=== PATIENT | female | born 1950 | race Caucasian/White ===

== ENCOUNTER 2018-01-11 02:55 | Outpatient (CLI) | payer MEDICARE, MEDICAID, SELFPAY ==
[2018-01-11 10:14] LABS: ALT 287 U/L (12-78); AST 186 U/L (15-37); Albumin 4.1 g/dL (3.4-5.0); Alkaline Phosphatase 95 U/L (46-116); T4 8.7 ug/dL (4.5-12.5); TSH 1.72 uIU/mL (0.358-3.74); Total Protein 7.9 g/dL (6.4-8.2)
[2018-01-11 10:15] LABS: Folate > 20.0 ng/mL (8.6-20.0); Vitamin B12 > 1000 pg/mL (193-986)
[2018-01-11 11:19] LABS: Bilirubin, Direct 0.15 mg/dL (0.00-0.20); Bilirubin, Total 0.3 mg/dL (0.2-1.0); C-Reactive Protein 0.07 mg/dL (0.0-0.3)
[2018-01-11 21:35] LABS: T3,Free 2.1 pg/ml (2.8-5.3)
[2018-01-12 15:39] LABS: Apolipoprotein A1 154 mg/dL (>=140); Lipoprotein (a) 25 mg/dL (<=30)
[2018-01-13 07:11] LABS: Vitamin D 25 Total 117.7 ng/ml (30-100)
== END 2018-01-11 02:56 ==
PROVIDERS: PCP Naturopath; Visit Provider Naturopath
DX: R06.00 Dyspnea, unspecified (principal); E55.9 Vitamin D deficiency, unspecified; I25.10 Atherosclerotic heart disease of native coronary artery without angina pectoris; D53.9 Nutritional anemia, unspecified; E03.9 Hypothyroidism, unspecified; R53.83 Other fatigue; B18.2 Chronic viral hepatitis C; R00.2 Palpitations; R94.31 Abnormal electrocardiogram [ECG] [EKG]; R07.9 Chest pain, unspecified
CPT/HCPCS: 36415; 80076; 82306; 83695; 82172; 82607; 82746; 84436; 84443; 84481; 86140; 87522

== ENCOUNTER 2018-01-21 03:22 | Outpatient (CLI) | payer MEDICARE, MEDICAID, SELFPAY ==
[2018-01-21 08:34] LABS: ALT 285 U/L (12-78); AST 165 U/L (15-37); Albumin 3.8 g/dL (3.4-5.0); Alkaline Phosphatase 91 U/L (46-116); Anion Gap 5.2 mmol/L (3-11); BUN 10 mg/dL (7-18); Bilirubin, Total 0.4 mg/dL (0.2-1.0); CO2 27.8 mmol/L (21.0-32.0); Calcium 9.3 mg/dL (8.5-10.1); Chloride 104 mmol/L (98-107); Glucose 90 mg/dL (70-100); PHOSPHORUS 3.7 mg/dL (2.6-4.7); Potassium 4.9 mmol/L (3.5-5.1); Sodium 137 mmol/L (136-145); Total Protein 7.2 g/dL (6.4-8.2)
[2018-01-24 11:48] LABS: Parathyroid Hormone,Intact 59 pg/ml (19-88)
== END 2018-01-21 03:23 ==
PROVIDERS: PCP Naturopath; Visit Provider Naturopath
DX: E67.3 Hypervitaminosis D (principal); N20.0 Calculus of kidney; M62.40 Contracture of muscle, unspecified site
CPT/HCPCS: 36415; 80053; 83970; 84100

== ENCOUNTER 2018-03-01 01:58 | Outpatient (CLI) | payer MEDICARE, MEDICAID, SELFPAY ==
[2018-03-01 08:33] LABS: FREE T4 0.86 ng/dL (0.76-1.46); TSH 1.27 uIU/mL (0.358-3.74)
[2018-03-01 21:31] LABS: T3,Free 2.5 pg/ml (2.8-5.3)
[2018-03-03 07:43] LABS: Vitamin D 25 Total 98.7 ng/ml (30-100)
== END 2018-03-01 02:18 ==
PROVIDERS: PCP Naturopath; Visit Provider Naturopath
DX: E55.9 Vitamin D deficiency, unspecified (principal); E03.9 Hypothyroidism, unspecified
CPT/HCPCS: 36415; 82306; 84439; 84443; 84481

== ENCOUNTER 2018-03-24 01:41 | Outpatient (CLI) | payer MEDICARE, MEDICAID, SELFPAY ==
[2018-03-24 10:22] LABS: FREE T4 0.79 ng/dL (0.76-1.46); TSH 1.48 uIU/mL (0.358-3.74)
[2018-03-24 21:43] LABS: T3,Free 2.2 pg/ml (2.8-5.3)
== END 2018-03-24 02:01 ==
PROVIDERS: PCP Naturopath; Visit Provider Naturopath
DX: E03.9 Hypothyroidism, unspecified (principal)
CPT/HCPCS: 36415; 84439; 84443; 84481

== ENCOUNTER 2018-04-26 00:08 | Outpatient (CLI) | payer MEDICARE, MEDICAID, SELFPAY ==
--- NOTE | 2018-04-26 13:30 | DI.RAD_ITS ---
SYMPTOMS/DIAGNOSIS: SCREENING FOR OSTEOPOROSIS, Z78.0 DEXA SCAN: Routine examination. The single lateral view of the spine shows no compression deformities. Evaluation of the left hip shows a total T score of -2.0 and a Z score of -0.6 This is consistent with osteopenia and an increased fracture risk. Evaluation of the lumbar spine shows a total T score of -0.6 and a Z score of 1.4, which is within normal limits. IMPRESSION: Osteopenia in the left hip. No evidence of osteoporosis.
== END 2018-04-26 00:28 ==
PROVIDERS: PCP Naturopath; Visit Provider Naturopath
DX: M85.88 Other specified disorders of bone density and structure, other site (principal); Z78.0 Asymptomatic menopausal state
CPT/HCPCS: 77080

== ENCOUNTER 2018-06-19 09:09 | Outpatient (CLI) | payer MEDICARE, MEDICAID, SELFPAY ==
[2018-06-19 11:26] LABS: FREE T4 0.89 ng/dL (0.76-1.46); TSH 1.13 uIU/mL (0.358-3.74)
[2018-06-20 17:14] LABS: T3,Free 2.9 pg/ml (2.8-5.3)
== END 2018-06-19 09:29 ==
PROVIDERS: PCP Naturopath; Visit Provider Naturopath
DX: E03.9 Hypothyroidism, unspecified (principal)
CPT/HCPCS: 36415; 84439; 84443; 84481

== ENCOUNTER 2019-01-05 00:35 | Outpatient (CLI) | payer MEDICARE, MEDICAID, SELFPAY ==
[2019-01-05 07:35] LABS: Absolute Basophil Count 0.06 k/cumm (0.0-0.2); Absolute Lymphocyte Count 2.02 k/cumm (1.2-3.4); Absolute Monocyte Count 0.67 k/cumm (0.11-0.7); Absolute Neutrophil Count 2.68 k/cumm (1.2-6.7); Basophils % 1.1; Eosinophils % 3.6; HCT 39.2 % (36.0-46.0); Lymphocytes % 35.9; Mean Corp. HGB Concentration 33.2 g/dL (32.0-36.0); Mean Corpuscular Hemoglobin 31.5 pg (27.0-33.0); Mean Corpuscular Volume 94.9 fL (80-95); Mean Platelet Volume 11.4 fL (8.0-11.0); Monocytes % 11.9; Neutrophils % 47.5; Platelet Count 203 x1000/uL (130-400); RBC 4.13 m/cumm (4.00-5.20); RBC Distribution Width 12.5 % (11.7-14.6); White Blood Cell Count 5.63 k/cumm (4.4-10.8)
[2019-01-05 07:43] LABS: Hemoglobin A1C 5.3 % (4.5-6.2)
[2019-01-05 08:49] LABS: Iron 73 ug/dL (50-175); Total Iron Binding Capacity 291 ug/dL (250-450); Transferrin Sat 25 % (15-50)
[2019-01-05 08:51] LABS: ALT 65 U/L (12-78); AST 49 U/L (15-37); Albumin 3.7 g/dL (3.4-5.0); Alkaline Phosphatase 84 U/L (46-116); Anion Gap 10.7 mmol/L (3-11); BUN 11 mg/dL (7-18); Bilirubin, Total 0.4 mg/dL (0.2-1.0); CO2 26.3 mmol/L (21.0-32.0); CREATININE 0.68 mg/dL (0.55-1.02); Calcium 9.3 mg/dL (8.5-10.1); Chloride 101 mmol/L (98-107); FREE T4 0.92 ng/dL (0.76-1.46); Glucose 98 mg/dL (70-100); Potassium 4.2 mmol/L (3.5-5.1); Sodium 138 mmol/L (136-145); Total Protein 7.6 g/dL (6.4-8.2)
[2019-01-05 09:12] LABS: Vitamin D 25 Total 83.3 ng/ml (30-100)
[2019-01-05 17:01] LABS: T3,Free 2.5 pg/ml (2.8-5.3)
[2019-01-06 13:29] LABS: Apolipoprotein A1 151 mg/dL (>=140)
== END 2019-01-05 00:55 ==
PROVIDERS: PCP Naturopath; Visit Provider Naturopath
DX: E03.9 Hypothyroidism, unspecified (principal); R53.83 Other fatigue; E55.9 Vitamin D deficiency, unspecified; D50.9 Iron deficiency anemia, unspecified; I25.10 Atherosclerotic heart disease of native coronary artery without angina pectoris; R00.2 Palpitations; B18.2 Chronic viral hepatitis C; R79.89 Other specified abnormal findings of blood chemistry
CPT/HCPCS: 36415; 80053; 82306; 82172; 83036; 83540; 83550; 84439; 84443; 84481; 85025; 87522

== ENCOUNTER → 2019-03-29 13:48 | Outpatient (BNVA) | payer MEDICARE, MEDICAID, SELFPAY | PROVIDERS: PCP Naturopath; Referring Provider Naturopath; Visit Provider Psychiatry & Neurology Neurology | DX: R68.84 Jaw pain (principal); G25.0 Essential tremor | CPT/HCPCS: 99215 ==

== ENCOUNTER 2019-06-24 00:26 | Outpatient (CLI) | payer MEDICARE, MEDICAID, SELFPAY ==
[2019-06-24 11:27] LABS: FREE T4 0.84 ng/dL (0.76-1.46); TSH 1.21 uIU/mL (0.36-3.74)
[2019-06-25 16:27] LABS: T3,Free 2.5 pg/mL (2.8-5.3)
== END 2019-06-24 00:46 ==
PROVIDERS: PCP Naturopath; Visit Provider Naturopath
DX: E03.9 Hypothyroidism, unspecified (principal)
CPT/HCPCS: 36415; 84439; 84443; 84481

== ENCOUNTER 2021-03-31 10:15 | Emergency (ER) | payer MEDICARE, MEDICAID, SELFPAY ==
[2021-03-31 10:32] VITALS: BP 149/73; PULSE 80; RESP 18; TEMP 36.9; O2SAT 98
--- NOTE | 2021-03-31 10:38 | W.ED.GENAD ---
Discharge Plan Disposition Patient Disposition: HOME Condition: Improving Discharge Details Clinical Impression: COVID-19 Primary Care Provider: Marley Almanzar ED Provider: Jonny Montiel Home Meds and New Rx's Prescriptions: New ondansetron HCl [Zofran] 4 mg tablet 4 mg PO QID PRN (Reason: nausea and vomiting) Qty: 10 RF: 0 Continued MP Thyroid PO RF: 0 lecithin 1,200 MG capsule 1,500 mg PO DAILY AM RF: 0 garlic 1 EACH capsule 1 ea PO BID RF: 0 Pure Taurine 500 MG capsule 500 mg PO DAILY AM RF: 0 glucosamine sulfate 2KCl 1,000 MG tablet 1,500 mg PO DAILY AM RF: 0 Mag Glycinate 100 MG tablet 100 mg PO HS RF: 0 IRINA/MAG/ZINC RF: 0 LIPOSOMAL GLUTATHION RF: 0 coenzyme Q10 [CoQ-10] 100 MG capsule 100 mg PO DAILY RF: 0 Arnica [place] 4 tab PRN PRNRF: 0 Discharge Instructions Instructions: Viral Syndrome (ED) Additional Instructions: May use Zofran as provided/prescribed as needed for nausea. Continue small, frequent sips of fluids to maintain good hydration. Return to the emergency department for any acute concerns. Medical Decision Making 71-year-old female referred by primary care physician. She was diagnosed with COVID-19 last week, and has had some general malaise, weakness, poor p.o. intake. She was picked up by the ambulance, given 500 cc normal saline and Zofran on route with improvement. She has not had a cough or shortness of breath. She rushed to the ER afebrile, interactive, normotensive with an oxygenation of 90% on room air. Her exam is reassuring. Patient given additional 1 L of fluid, screening laboratories obtained. Labs note white blood cell count of 2.7, hematocrit 43, platelets 85. Sodium 134, testing 3.7, chloride 97, bicarb 24, BUN 10, creatinine 0.7. Magnesium 1.8. AST 69, ALT 93, total bili 0.4. Patient improved following Zofran and fluids. She is stable and appropriate for discharge to home. She has no evidence of hypoxia or respiratory distress. HPI General Mode of arrival: EMS. Date/Time Provider Initiated Documentation: 03/31/21 10:25. Limitations to Documentation: no limitations. Information obtained by: patient and EMS. History of Present Illness 71 year old F presents to the emergency department with the chief complaint of COVID-19 infection since last week, feels dehydrated, referred by PMD, described as moderate, Quality is described as dull and constant, Patient reports no radiation. Patient started experiencing this day(s) and it has been constant. No relieving factors improve symptom(s), No exacerbating factors reported . Patient notes loss of appetite and weakness; denies cough, shortness of breath and syncope. Patient did receive the following treatments prior to arrival, none Related Data Home Medications Medication Instructions Recorded Confirmed Arnica [place] 4 tab PRN PRN 12/02/12 03/31/21 Mag Glycinate 100 mg PO HS 07/09/15 03/31/21 Pure Taurine 500 mg PO DAILY AM 07/09/15 03/31/21 garlic 1 ea PO BID 07/09/15 03/31/21 glucosamine sulfate 2KCl 1,500 mg PO DAILY AM 07/09/15 03/31/21 lecithin 1,500 mg PO DAILY AM 07/09/15 03/31/21 coenzyme Q10 [CoQ-10] 100 mg PO DAILY 10/20/17 03/31/21 MP Thyroid PO 03/11/21 03/11/21 ondansetron HCl [Zofran] 4 mg PO QID PRN #10 tab 03/31/21 Previous Rx's Medication Instructions Recorded ondansetron HCl [Zofran] 4 mg PO QID PRN #10 tab 03/31/21 Allergies Allergy/AdvReac Type Severity Reaction Status Date / Time Penicillins Allergy Severe Unverified 03/31/21 10:36 General Stated Complaint: [facility] ROMEO: 3 Review of Systems Narrative: No shortness of breath, no significant cough. No chest pain. Decreased p.o. intake. Generalized weakness. Some loose stool. Not immunized against COVID-19. Lives alone. 8 systems reviewed and otherwise negative. 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 Patient has declined ribavirin. Has yearly LFTs and liver ultrasound. Hypothyroidism Rx from [place]. Intraductal papilloma of right breast Had 4 procedures for Dx and treatment. 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 H/O left breast biopsy benign findings. S/P sinus surgery S/P tonsillectomy and adenoidectomy S/P tubal ligation S/P wisdom tooth extraction Family History Other Adopted Diabetes Social History Smoking/Tobacco Use Status: Former Tobacco Use Smoking risk assessment performed?: Yes Alcohol Intake: former Details: no ETOH since HepC Dx. Drug use: Never Substance use type: marijuana Details: vapes MJ daily. Household members: significant other and other Details: BF is Umang. 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 Pleasant, well groomed, interactive. HEAD: Normocephalic, atraumatic ENT: External ear exam unremarkable EYES: PERRL, EOMI NECK: Full ROM, no CATIA, no menigismus CHEST/RESP: Nontender, clear to auscultation bilateral, no wheeze/rhonchi/rales CARDIOVASCULAR: RRR, no murmur, rub sophy. 2+ Rad pulse bilateral ABDOMEN: Soft, nontender, no mass. +Bowel sounds EXT: Full ROM, no edema, no rash Neuro: Grossly normal neurologic exam, conversant, interactive. Psych: Speech fluent, thoughts congruent, affect normal Course Vital Signs Vital signs: Vital Signs Temperature 36.9 C 03/31/21 10:32 Pulse 80 03/31/21 10:32 Respiratory Rate 18 03/31/21 10:32 Blood Pressure 149/73 H 03/31/21 10:32 Pulse Oximetry 98 03/31/21 10:32 Temperature 36.9 C 03/31/21 10:32 Temperature Source Oral 03/31/21 10:32 Pulse 80 03/31/21 10:32 Respiratory Rate 18 03/31/21 10:32 Respiratory Effort 03/31/21 10:36 Blood Pressure 149/73 H 03/31/21 10:32 Pulse Oximetry 98 03/31/21 10:32 Oxygen Delivery Method Room Air 03/31/21 10:32 Oxygen Flow Rate 0 03/31/21 10:32 Pain Level 0 03/31/21 10:32
[2021-03-31 10:51] LABS: Absolute Basophil Count 0.01 10^3/uL (0.0-0.2); Absolute Monocyte Count 0.32 10^3/uL (0.1-0.8); Absolute Neutrophil Count 1.24 10^3/uL (1.2-6.7); Basophils % 0.4; HCT 43.6 % (36.0-46.0); HGB 14.4 g/dL (11.2-15.7); Lymphocytes % 43.3; MCH 30.4 pg (27.0-33.0); Monocytes % 11.6; Neutrophils % 44.7; Nucleated RBC 0 %; RBC 4.74 10^6/uL (3.93-5.22); RDW 12.7 % (11.7-14.6); RDW-SD 43.4 fL; WBC 2.77 10^3/uL (4.4-10.8)
[2021-03-31] MEDS: Normal Saline 1,000 ML 1000 ML IV (10:59)
[2021-03-31] MEDS: Normal Saline Flush 10 ML SYR IVP (11:00)
[2021-03-31 11:03] LABS: ALT 93 U/L (14-59); AST 69 U/L (15-37); Albumin 3.7 g/dL (3.4-5.0); Alkaline Phosphatase 77 U/L (46-116); Anion Gap 12.5 mmol/L (3-11); BUN 10 mg/dL (7-18); Bilirubin, Total 0.4 mg/dL (0.2-1.0); CO2 24.5 mmol/L (21.0-32.0); CREATININE 0.7 mg/dL (0.55-1.02); Chloride 97 mmol/L (98-107); Glucose 118 mg/dL (74-106); Magnesium 1.8 mg/dL (1.8-2.4); Potassium 3.7 mmol/L (3.5-5.1); Sodium 134 mmol/L (136-145); Total Protein 7.3 g/dL (6.4-8.2)
[2021-03-31 11:07] LABS: Platelet Count 85 10^3/uL (130-400)
[2021-03-31 11:42] LABS: Bilirubin Negative (Negative); Blood Trace-intact (Negative); Clarity Clear (Clear); Glucose Negative (Negative); Ketones Trace mg/dL (Negative); Leukocyte Esterase Negative (Negative); Nitrite Negative (Negative); Urobilinogen 0.2 EU/dL (Up TO 0.2)
[2021-03-31] MEDS: Ondansetron O.D.T. 4 MG TABEF (11:48)
[2021-03-31 11:53] LABS: Bacteria Negative HPF (Negative); C & S Indicated? No; Casts Negative LPF (Negative); Crystals Negative HPF (Negative); Epithelial Cells Rare HPF (Negative); Mucus Negative (Negative); RBC 0-2 HPF (0-2); WBC Negative HPF (0-5)
[2021-03-31 12:46] VITALS: PULSE 86; RESP 14; TEMP 36.6; O2SAT 90
== END 2021-03-31 12:40 | disposition home or self-care (01) ==
LOC: ER 12:27
PROVIDERS: Emergency Provider Emergency Medicine; PCP Naturopath
DX: U07.1 COVID-19 (principal)
CPT/HCPCS: 80053; 96360; 99284; 81003; 81015; 83735; 85025; 99283

== ENCOUNTER 2021-05-08 01:51 | Outpatient (CLI) | payer MEDICARE, MEDICAID, SELFPAY ==
--- NOTE | 2021-05-08 | DI.US_ITS ---
Exam(s) US ABDOMEN LIMITED EXAM: US ABDOMEN LIMITED CLINICAL HISTORY: HEPATITIS,THROMBOCYTOPENIA TECHNIQUE: Ultrasound abdomen performed using standard protocol. COMPARISON: US THYROID ULTRASOUND from 06/28/2015 FINDINGS: There is no ascites evident. LIVER: There are no hepatic lesions evident nor dilatation of intrahepatic ducts. Liver appears hyper echoic element steatosis. GALLBLADDER/BILIARY: There are no gallstones. No gallbladder wall edema nor pericholecystic fluid. The common hepatic duct isnot dilated, measuring 4.8mm at the level of mikie hepatis. PANCREAS: Not well seen due to overlying bowel gas. RIGHT KIDNEY:No evidence of solid mass, calculus, nor hydronephrosis. No cortical cysts evident. IMPRESSION: 1. No evidence of cholelithiasis nor dilatation of the biliary tree. 2. Pancreas was not able to be studied due to overlying bowel gas. 3. There is no ascites. DATA REPOSITORY:
== END 2021-05-08 02:11 ==
PROVIDERS: PCP Naturopath; Visit Provider Internal Medicine
DX: K75.89 Other specified inflammatory liver diseases (principal); D69.3 Immune thrombocytopenic purpura; K76.0 Fatty (change of) liver, not elsewhere classified
CPT/HCPCS: 36415; 80053; 82306; 82784; 86022; 86147; 87389; 87522; 76705; 81003; 82607; 82728; 84439; 84443; 84481; 85025; 86038; 86431

== ENCOUNTER 2021-05-08 02:21 | Outpatient (CLI) | payer MEDICARE, MEDICAID, SELFPAY ==
[2021-05-08 08:55] LABS: Bilirubin Negative (Negative); Blood Negative (Negative); Clarity Clear (Clear); Glucose Negative (Negative); Ketones Negative (Negative); Leukocyte Esterase Negative (Negative); Nitrite Negative (Negative); Urobilinogen 0.2 EU/dL (Up TO 0.2); pH 7.5 (5-8)
[2021-05-08 08:59] LABS: Abs Immature Grans 0.01 10^3/uL (0.0-0.06); Absolute Basophil Count 0.07 10^3/uL (0.0-0.2); Absolute Eosinophil Count 0.17 10^3/uL (0.0-0.7); Absolute Lymphocyte Count 2.38 10^3/uL (1.2-3.4); Absolute Monocyte Count 0.86 10^3/uL (0.1-0.8); Basophils % 1.1; Eosinophils % 2.6; HGB 11.7 g/dL (11.2-15.7); Immature Grans % 0.2; Lymphocytes % 36.7; MCH 29.8 pg (27.0-33.0); MCHC 30.8 % (32.0-36.0); MCV 96.9 fL (80-95); MPV 12.5 fL (8.0-11.0); Monocytes % 13.3; Neutrophils % 46.1; Nucleated RBC 0 %; Platelet Count 146 10^3/uL (130-400); RBC 3.92 10^6/uL (3.93-5.22); RDW-SD 53.2 fL; WBC 6.49 10^3/uL (4.4-10.8)
[2021-05-08 10:53] LABS: ALT 71 U/L (14-59); AST 51 U/L (15-37); Albumin 3.6 g/dL (3.4-5.0); Alkaline Phosphatase 92 U/L (46-116); Anion Gap 6.9 mmol/L (3-11); BUN 18 mg/dL (7-18); Bilirubin, Total 0.3 mg/dL (0.2-1.0); CO2 28.1 mmol/L (21.0-32.0); CREATININE 0.7 mg/dL (0.55-1.02); Calcium 9.2 mg/dL (8.5-10.1); Chloride 102 mmol/L (98-107); Ferritin 64 ng/mL (8-252); Glucose 90 mg/dL (74-106); Potassium 4.1 mmol/L (3.5-5.1); Sodium 137 mmol/L (136-145); TSH 1.88 uIU/mL (0.36-3.74); Total Protein 7.4 g/dL (6.4-8.2); Vitamin B12 1403 pg/mL (193-986)
[2021-05-08 18:30] LABS: Rheumatoid Factor <8.6 IU/mL (<12.0)
[2021-05-08 18:39] LABS: T3,Free 2.9 pg/mL (2.8-5.3)
[2021-05-08 20:39] LABS: FREE T4 0.64 ng/dL (0.76-1.46)
[2021-05-09 10:51] LABS: HIV-1/2 Ag & Ab Screen Negative (Negative)
[2021-05-09 12:23] LABS: IgA 150 mg/dL (85-499); IgG 1382 mg/dL (610-1,616); IgM 225 mg/dL (35-242)
[2021-05-09 13:50] LABS: ANA Interpretation Positive (Negative); ANA Titer Pattern 1:160 Speckled
[2021-05-09 14:14] LABS: HCV RNA Detection Quantitative 80800 IU/mL (Undetected); HCV RNA Qualitative Detected (Undetected)
[2021-05-09 20:00] LABS: Phospholipid Ab, IgG <9.4 GPL; Phospholipid Ab, IgM 11.5 MPL
[2021-05-10 02:33] LABS: 25-Hydroxy D Total 62 ng/mL; 25-Hydroxy D2 6.5 ng/mL; 25-Hydroxy D3 55 ng/mL
[2021-05-15 12:52] LABS: Overall Result Negative
[2021-05-15 12:53] LABS: Interpretation See Comments
[2021-05-15 12:57] LABS: GPIIb/IIIa (Cell-1) Negative
[2021-05-15 12:58] LABS: GPIIb/IIIa (Cell-2) Negative; GPIa/IIa (Cell-1) Negative; GPIa/IIa (Cell-2) Negative
[2021-05-15 12:59] LABS: GPIV Negative; GPIb/IX Negative
[2021-05-15 13:00] LABS: HLA Class I Negative
[2021-05-15 13:01] LABS: IVIg in last month? No; Plt Transfusion in last 72hrs? No; Reason for request? See Comments
[2021-05-15 13:02] LABS: Platelet Count x 10(9)/L ? 146
== END 2021-05-08 02:22 | disposition home or self-care (01) ==
LOC: LBO 02:21
PROVIDERS: PCP Naturopath; Visit Provider Internal Medicine
DX: D69.6 Thrombocytopenia, unspecified (principal); D53.9 Nutritional anemia, unspecified; D72.819 Decreased white blood cell count, unspecified; B18.2 Chronic viral hepatitis C; I10 Essential (primary) hypertension; R42 Dizziness and giddiness; R53.83 Other fatigue; E03.9 Hypothyroidism, unspecified; E55.9 Vitamin D deficiency, unspecified; K14.0 Glossitis; N20.0 Calculus of kidney
CPT/HCPCS: 36415; 80053; 82306; 82784; 86022; 86147; 87389; 87522; 81003; 82607; 82728; 84439; 84443; 84481; 85025; 86038; 86431

== ENCOUNTER 2021-06-06 04:11 | Outpatient (CLI) | payer MEDICARE, MEDICAID, SELFPAY ==
[2021-06-06 12:39] LABS: INR 1.1 (0.9-1.1); Prothrombin Time 11.5 sec (9.3-11.0)
[2021-06-09 09:58] LABS: AFP Tumor Marker <2.5 ng/mL (<8.1)
[2021-06-10 14:04] LABS: dsDNA Ab, IgG 13.5 IU/mL (<30.0)
== END 2021-06-06 04:12 | disposition home or self-care (01) ==
LOC: LBO 04:11
PROVIDERS: PCP Naturopath; Visit Provider Internal Medicine
DX: B18.2 Chronic viral hepatitis C (principal); D69.3 Immune thrombocytopenic purpura; R53.83 Other fatigue
CPT/HCPCS: 36415; 82105; 85610; 86225

== ENCOUNTER 2021-06-24 01:08 | Outpatient (CLI) | payer MEDICARE, MEDICAID, SELFPAY ==
--- NOTE | 2021-06-24 | DI.US_ITS ---
Exam(s) US ABDOMEN LIMITED EXAM: US ABDOMEN LIMITED CLINICAL HISTORY: HEP C TECHNIQUE: Ultrasound abdomen performed using standard protocol. COMPARISON: US US ABDOMEN LIMITED from 05/08/2021 FINDINGS: PANCREAS: Normal where visualized. LIVER: Normal. Hepatopedal flow in the Portal Vein. The liver measures in the liver measures 12 cm lo ng. Length. GALLBLADDER: No evidence of cholelithiasis. No evidence of wall thickening. No pericholecystic fluid identified. BILIARY SYSTEM: Common bile duct measures < 7 mm. No intrahepatic biliary ductal dilation. CRUZ'S SIGN: Negative. RIGHT KIDNEY: Kidney is normal in size. No evidence of renal calculi. No evidence of hydronephrosis. No renal mass or cyst identified. ASCITES: None seen. IMPRESSION: Normal sonographic appearance of the upper abdomen. DATA REPOSITORY:
== END 2021-06-24 01:28 ==
PROVIDERS: PCP Naturopath; Visit Provider Internal Medicine
DX: B18.2 Chronic viral hepatitis C (principal)
CPT/HCPCS: 76705

== ENCOUNTER 2021-09-02 03:22 | Outpatient (CLI) | payer MEDICARE, MEDICAID, SELFPAY ==
[2021-09-02 09:39] LABS: FREE T4 0.89 ng/dL (0.76-1.46); TSH 0.16 uIU/mL (0.36-3.74)
[2021-09-02 17:25] LABS: T3,Free 3.5 pg/mL (2.8-5.3)
== END 2021-09-02 03:23 | disposition home or self-care (01) ==
LOC: LBO 03:22
PROVIDERS: PCP Naturopath; Visit Provider Naturopath
DX: E03.9 Hypothyroidism, unspecified (principal)
CPT/HCPCS: 36415; 84439; 84443; 84481

== ENCOUNTER 2023-05-04 04:56 | Outpatient (CLI) | payer MEDICARE, MEDICAID, SELFPAY ==
[2023-05-04 11:24] LABS: ALT 89 U/L (14-59); AST 52 U/L (15-37); Albumin 3.5 g/dL (3.4-5.0); Alkaline Phosphatase 79 U/L (46-116); Anion Gap 3.9 mmol/L (3-11); BUN 15 mg/dL (7-18); Bilirubin, Total 0.4 mg/dL (0.2-1.0); CO2 31.1 mmol/L (21.0-32.0); CREATININE 0.9 mg/dL (0.55-1.02); Calcium 9.6 mg/dL (8.5-10.1); Chloride 101 mmol/L (98-107); Estimated GFR 67.08 (mL/min/1.73m2); Glucose 87 mg/dL (74-106); Potassium 4.2 mmol/L (3.5-5.1); Sodium 136 mmol/L (136-145); TSH 9.12 uIU/mL (0.36-3.74); Total Protein 7.6 g/dL (6.4-8.2)
[2023-05-04 17:56] LABS: T3,Free 3.6 pg/mL (2.8-5.3)
[2023-05-05 11:00] LABS: HCV RNA Detection Quantitative 258000 IU/mL (Undetected); HCV RNA Qualitative Detected (Undetected)
[2023-05-05 14:49] LABS: ANA Interpretation Positive (Negative); ANA Titer Pattern 1:80 Speckled
[2023-05-07 19:31] LABS: Iodine, S 261 ng/mL (40-92)
== END 2023-05-04 04:57 | disposition home or self-care (01) ==
LOC: LBO 04:56
PROVIDERS: PCP Naturopath; Visit Provider Naturopath
DX: R53.83 Other fatigue (principal); N95.1 Menopausal and female climacteric states; E03.9 Hypothyroidism, unspecified; A69.20 Lyme disease, unspecified
CPT/HCPCS: 36415; 80053; 87522; 82190; 84439; 84443; 84481; 86038

== ENCOUNTER 2023-08-03 04:13 | Outpatient (CLI) | payer MEDICARE, MEDICAID, SELFPAY ==
[2023-08-03 10:31] LABS: ALT 126 U/L (14-59); AST 70 U/L (15-37); Alkaline Phosphatase 95 U/L (46-116); Anion Gap 9.8 mmol/L (3-11); BUN 15 mg/dL (7-18); Bilirubin, Total 0.4 mg/dL (0.2-1.0); CO2 26.2 mmol/L (21.0-32.0); CREATININE 0.8 mg/dL (0.55-1.02); Calcium 9.5 mg/dL (8.5-10.1); Chloride 102 mmol/L (98-107); Estimated GFR 77.27 (mL/min/1.73m2); FREE T4 0.98 ng/dL (0.76-1.46); Glucose 98 mg/dL (74-106); Potassium 3.9 mmol/L (3.5-5.1); Sodium 138 mmol/L (136-145); TSH 9.63 uIU/Ml (0.36-3.74); Total Protein 8.3 g/dL (6.4-8.2)
[2023-08-04 10:40] LABS: HCV RNA Detection Quantitative 475000 IU/mL (Undetected); HCV RNA Qualitative Detected (Undetected)
[2023-08-04 11:51] LABS: ANA Interpretation Negative (Negative)
[2023-08-06 17:21] LABS: Iodine, S 68 ng/mL (40-92)
== END 2023-08-03 04:14 | disposition home or self-care (01) ==
LOC: LBO 04:14
PROVIDERS: PCP Naturopath; Visit Provider Naturopath
DX: R53.83 Other fatigue (principal); E03.9 Hypothyroidism, unspecified; B18.2 Chronic viral hepatitis C; N95.1 Menopausal and female climacteric states; A69.20 Lyme disease, unspecified
CPT/HCPCS: 36415; 80053; 87522; 82190; 84439; 84443; 84481; 86038

== ENCOUNTER 2023-08-16 20:47 | Outpatient (REF) | payer MEDICARE, MEDICAID, SELFPAY ==
[2023-08-16 21:30] LABS: Bilirubin Negative (Negative); Blood Negative (Negative); Clarity Clear (Clear); Glucose Negative (Negative); Ketones Negative (Negative); Leukocyte Esterase Negative (Negative); Nitrite Negative (Negative); Urobilinogen 0.2 mg/dL (Up to 0.2); pH 7.5 (5-8)
[2023-08-16 21:39] LABS: Bacteria Negative HPF (Negative); Epithelial Cells Rare HPF (Negative); RBC Negative HPF (0-2); WBC Negative HPF (0-5)
[2023-08-16 21:40] LABS: C & S Indicated? No; Casts Negative LPF (Negative); Crystals Moderate Amorphous HPF (Negative); Mucus Negative (Negative)
== END 2023-08-16 20:48 | disposition home or self-care (01) ==
LOC: NCHCN 20:47
PROVIDERS: PCP Naturopath; Visit Provider Naturopath
DX: R35.0 Frequency of micturition (principal); R10.32 Left lower quadrant pain
CPT/HCPCS: 81003; 81015

== ENCOUNTER 2023-10-28 20:58 | Outpatient (REF) | payer MEDICARE, MEDICAID, SELFPAY ==
[2023-10-28 21:33] LABS: Bilirubin Negative (Negative); Blood Negative (Negative); Clarity Clear (Clear); Glucose Negative (Negative); Ketones Negative (Negative); Leukocyte Esterase Negative (Negative); Nitrite Negative (Negative); Urobilinogen 0.2 mg/dL (Up to 0.2); pH 7.5 (5-8)
== END 2023-10-28 20:59 | disposition home or self-care (01) ==
LOC: LBN 20:58
PROVIDERS: PCP Naturopath; Visit Provider Naturopath
DX: R35.0 Frequency of micturition (principal); R10.32 Left lower quadrant pain
CPT/HCPCS: 81003

== ENCOUNTER 2024-05-03 02:34 | Outpatient (CLI) | payer MEDICARE, MEDICAID, SELFPAY ==
[2024-05-03 08:50] LABS: Abs Immature Grans 0.01 10^3/uL (0.0-0.06); Absolute Basophil Count 0.05 10^3/uL (0.0-0.2); Absolute Eosinophil Count 0.11 10^3/uL (0.0-0.7); Absolute Monocyte Count 0.63 10^3/uL (0.1-0.8); Basophils % 1.1 %; Eosinophils % 2.3 %; HCT 41.7 % (36.0-46.0); HGB 13.4 g/dL (11.2-15.7); Immature Grans % 0.2 %; Lymphocytes % 42.6 %; MCHC 32.1 % (32.0-36.0); MCV 97 fL (80-95); MPV 11.4 fL (8.0-11.0); Monocytes % 13.4 %; Neutrophils % 40.4 %; Platelet Count 165 10^3/uL (130-400); RBC 4.32 10^6/uL (3.93-5.22); RDW 13.1 % (11.7-14.6); RDW-SD 47.5 fL
[2024-05-03 08:54] LABS: Bilirubin Negative (Negative); Blood Negative (Negative); Clarity Clear (Clear); Glucose Negative (Negative); Ketones Negative (Negative); Leukocyte Esterase Negative (Negative); Nitrite Negative (Negative); Specific Gravity 1.015 (1.005-1.025); Urobilinogen 0.2 mg/dL (Up to 0.2); pH 7.5 (5-8)
[2024-05-03 09:20] LABS: ALT 101 U/L (14-59); AST 56 U/L (15-37); Albumin 3.6 g/dL (3.4-5.0); Alkaline Phosphatase 97 U/L (46-116); Anion Gap 6.1 mmol/L (3-11); BUN 13 mg/dL (7-18); Bilirubin, Total 0.29 mg/dL (0.2-1.0); CO2 28.9 mmol/L (21.0-32.0); CREATININE 0.8 mg/dL (0.55-1.02); Calcium 9.4 mg/dL (8.5-10.1); Chloride 104 mmol/L (98-107); Estimated GFR 76.79 (mL/min/1.73m2); FREE T4 0.93 ng/dL (0.76-1.46); Glucose 99 mg/dL (74-106); Potassium 4.8 mmol/L (3.5-5.1); Sodium 139 mmol/L (136-145); Total Protein 7.6 g/dL (6.4-8.2)
[2024-05-03 18:03] LABS: T3,Free 3.6 pg/mL (2.8-5.3)
[2024-05-04 14:47] LABS: HCV RNA Detection Quantitative 229000 IU/mL (Undetected); HCV RNA Qualitative Detected (Undetected)
== END 2024-05-03 02:35 | disposition home or self-care (01) ==
LOC: LBO 02:34
PROVIDERS: PCP Naturopath; Visit Provider Naturopath
DX: E01.8 Other iodine-deficiency related thyroid disorders and allied conditions; M26.69 Other specified disorders of temporomandibular joint; R63.6 Underweight; I10 Essential (primary) hypertension; E63.9 Nutritional deficiency, unspecified; M85.9 Disorder of bone density and structure, unspecified; A69.23 Arthritis due to Lyme disease; R42 Dizziness and giddiness; R53.83 Other fatigue; R35.0 Frequency of micturition
CPT/HCPCS: 36415; 80053; 87522; 81003; 82728; 84439; 84443; 84481; 85025

== ENCOUNTER 2024-08-18 00:47 | Outpatient (CLI) | payer MEDICARE, MEDICAID, SELFPAY ==
--- NOTE | 2024-08-18 | DI.RAD_ITS ---
Exam(s) XR HIP RT COMPLETE AP PELVIS EXAM: XR HIP RT COMPLETE AP PELVIS CLINICAL HISTORY: pain rt hip, M25.551, ? OA arthritis. TECHNIQUE: 2D digital imaging was performed. Three views. COMPARISON: No exams were available for comparison FINDINGS: BONES: No acute fracture is present. No bony destructive lesion is seen. JOINTS: No dislocation present. Mild bilateral hip joint space narrowing and acetabular spurring. SI joints and pubic symphysis show mild degenerative spurring. Degenerative changes and a severe scoli osis at the lower lumbar spine. SOFT TISSUE: Normal. IMPRESSION: Mild degenerative changes of the bilateral hips. DATA REPOSITORY: RADIATION DOSE DELIVERED:
== END 2024-08-18 01:07 ==
LOC: DI 00:47
PROVIDERS: PCP Naturopath; Visit Provider Naturopath
DX: M16.0 Bilateral primary osteoarthritis of hip (principal)
CPT/HCPCS: 73502

== ENCOUNTER 2024-09-04 15:15 | Outpatient (REF) | payer MEDICARE, MEDICAID, SELFPAY ==
[2024-09-04 21:38] LABS: Calculated LDL 65 mg/dL (<100); Cholesterol 165 mg/dL (<200); HDL Cholesterol 94 mg/dL (>or=50); Triglyceride 31 mg/dL (<150)
== END 2024-09-04 15:16 | disposition home or self-care (01) ==
LOC: NCHCN 15:15
PROVIDERS: PCP Naturopath; Visit Provider Family Medicine
DX: Z13.220 Encounter for screening for lipoid disorders (principal)
CPT/HCPCS: 80061

== ENCOUNTER 2025-01-11 09:53 | Outpatient (REF) | payer MEDICARE, MEDICAID, SELFPAY ==
[2025-01-11 17:19] LABS: Abs Immature Grans 0.01 10^3/uL (0.0-0.06); HCT 39.0 % (36.0-46.0); HGB 12.6 g/dL (11.2-15.7); Immature Grans % 0.2 %; MCH 31.2 pg (27.0-33.0); MCHC 32.3 % (32.0-36.0); MCV 97 fL (80-95); RBC 4.04 10^6/uL (3.93-5.22); RDW 13.5 % (11.7-14.6); RDW-SD 48.8 fL; WBC 4.92 10^3/uL (4.4-10.8)
[2025-01-11 17:24] LABS: Platelet Count 153 10^3/uL (130-400)
[2025-01-11 17:42] LABS: ALT 119 U/L (14-59); AST 75 U/L (15-37); Albumin 3.6 g/dL (3.4-5.0); Alkaline Phosphatase 93 U/L (46-116); Anion Gap 7.4 mmol/L (3-11); BUN 14 mg/dL (7-18); Bilirubin, Total 0.4 mg/dL (0.2-1.0); CO2 28.6 mmol/L (21.0-32.0); Calcium 9.4 mg/dL (8.5-10.1); Chloride 103 mmol/L (98-107); Estimated GFR 97.75 (mL/min/1.73m2); Glucose 95 mg/dL (74-106); Potassium 4.1 mmol/L (3.5-5.1); Sodium 139 mmol/L (136-145); TSH (W/Ref FT4) 7.41 uIU/mL (0.36-3.74); Total Protein 7.3 g/dL (6.4-8.2)
[2025-01-12 19:37] LABS: Hepatitis C Ab w Rflx HCV PCR Reactive (Negative)
[2025-01-15 12:10] LABS: HCV RNA Detection Quantitative 1020000 IU/mL (Undetected); HCV RNA Qualitative Detected (Undetected)
== END 2025-01-11 09:54 | disposition home or self-care (01) ==
LOC: NCHCN 09:53
PROVIDERS: PCP Naturopath; Visit Provider Family Medicine
DX: E03.9 Hypothyroidism, unspecified (principal); B19.20 Unspecified viral hepatitis C without hepatic coma
CPT/HCPCS: 80053; 86803; 87522; 84439; 84443; 85025

== ENCOUNTER 2025-01-29 16:27 | Outpatient (REF) | payer MEDICARE, MEDICAID, SELFPAY ==
[2025-01-29 15:20] LABS: COMMENT (LAB VIEW ONLY) 23.37 mg/dL; Microalb ug/mg Crea 7.3 ug/mg Cr
== END 2025-01-29 16:28 | disposition home or self-care (01) ==
LOC: NCHCN 16:27
PROVIDERS: PCP Naturopath; Visit Provider Family Medicine
DX: B18.2 Chronic viral hepatitis C (principal)
CPT/HCPCS: 83520; 82043; 82105; 82570

== ENCOUNTER 2025-02-08 09:29 | Outpatient (REF) | payer MEDICARE, MEDICAID, SELFPAY ==
[2025-02-12 13:10] LABS: 5-Hydroxyindoleacetic Acid, U 5.3 mg/24 h (<=8.6)
== END 2025-02-08 09:30 | disposition home or self-care (01) ==
LOC: NCHCN 09:29
PROVIDERS: PCP Naturopath; Visit Provider Family Medicine
DX: R23.2 Flushing (principal)
CPT/HCPCS: 81050; 83497

== ENCOUNTER 2025-02-21 12:30 | Outpatient (CLI) | payer MEDICARE, MEDICAID, SELFPAY ==
[2025-02-21 14:35] LABS: INR 1.1 (0.9-1.1); PTT Activated 26.9 sec (20.6-30.2); Prothrombin Time 11.1 sec (9.1-11.1)
[2025-02-21 23:37] LABS: HIV-1/2 Ag & Ab Screen Negative (Negative)
[2025-02-21 23:56] LABS: Hepatitis A Antibody IgM Negative (Negative); Hepatitis C Ab w Rflx HCV PCR Reactive (Negative)
[2025-02-23 10:44] LABS: CMV Ab, IgM Negative (Negative)
[2025-02-23 11:10] LABS: HCV RNA Detection Quantitative 757000 IU/mL (Undetected); HCV RNA Qualitative Detected (Undetected)
[2025-02-23 11:13] LABS: VCA IgG Positive (Negative); VCA IgM Negative (Negative)
== END 2025-02-21 12:31 | disposition home or self-care (01) ==
LOC: LBO 12:31 → NCHCO 15:54
PROVIDERS: PCP Naturopath; Visit Provider Family Medicine
DX: B18.2 Chronic viral hepatitis C (principal)
CPT/HCPCS: 36415; 81256; 86704; 86709; 86803; 87340; 87389; 87522; 85610; 85730; 86038; 86255; 86644; 86645; 86664; 86665

== ENCOUNTER 2025-03-06 02:06 | Outpatient (CLI) | payer MEDICARE, MEDICAID, SELFPAY ==
--- NOTE | 2025-03-06 | DI.US_ITS ---
Exam(s) US ABDOMEN LIMITED EXAM: US ABDOMEN LIMITED CLINICAL HISTORY: CHRONIC HEP C WO HEPATIC COMA, B18.2 TECHNIQUE: Ultrasound of the right upper quadrant performed using standard protocol. COMPARISON: US US ABDOMEN LIMITED from 06/24/2021 FINDINGS: LIVER: Normal size, 13.2 cm in length. Heterogeneous, coarse echotexture with mildly increased echogenicity.. No focal liver lesions are seen.. GALLBLADDER: No evidence of cholelithiasis. No evidence of wall thickening. No pericholecystic fluid identified. CRUZ'S SIGN: Negative. BILIARY SYSTEM: No intrahepatic or extrahepatic biliary ductal dilation. RIGHT KIDNEY: Normal size. No evidence of renal calculi. No evidence of hydronephrosis. No suspicious renal mass. No cyst identified. PANCREAS: Normal where visualized. ABDOMINAL AORTA AND IVC: Visualized portions normal caliber. ASCITES: None seen. IMPRESSION: Normal size liver with heterogeneous liver echotexture. No focal suspicious masses. DATA REPOSITORY:
== END 2025-03-06 02:26 ==
LOC: DI 02:06
PROVIDERS: PCP Naturopath; Visit Provider Family Medicine
DX: B18.2 Chronic viral hepatitis C (principal)
CPT/HCPCS: 76705